=== PATIENT | female | born 1935 ===

== ENCOUNTER → 2020-02-27 | Outpatient (CLI) | payer OTHER | END | disposition home or self-care (01) | LOC: TOM 10:09 → EDBD 10:09 | PROVIDERS: ATTEND Internal Medicine | DX: K57.30 Diverticulosis of large intestine without perforation or abscess without bleeding (principal); K58.8 Other irritable bowel syndrome ==

== ENCOUNTER 2021-03-10 11:01 | Outpatient (CLI) | payer OTHER | END 2021-03-10 11:08 | disposition home or self-care (01) | LOC: EDBD 11:01 → LAB 11:01 | PROVIDERS: ATTEND Urology | DX: N30.00 Acute cystitis without hematuria (principal) ==